=== PATIENT | female | born 1995 | race African-American/Black ===

== ENCOUNTER 2017-08-18 21:17 | Emergency (ER) | payer OTHER ==
[~2017-08-18] VITALS: Ht 167.6 cm; Wt 111.4 kg
[2017-08-18 21:27] VITALS: BP 135/76; TEMP 99
[2017-08-18] MEDS ORDERED: NORCO 325 MG-51 TAB PO (22:49)
[2017-08-18] MEDS ORDERED: FLEXERIL 1010 MG/TAB PO (22:49)
[2017-08-18] MEDS ORDERED: MOTRIN 800800 MG/TAB PO (22:49)
[2017-08-18 23:27] VITALS: PULSE 87
== END 2017-08-18 23:29 | disposition home or self-care (01) ==
LOC: COL.ER 21:17
DX: S13.9XXA Sprain of joints and ligaments of unspecified parts of neck, initial encounter (principal); E78.5 Hyperlipidemia, unspecified; V43.62XA Car passenger injured in collision with other type car in traffic accident, initial encounter

== ENCOUNTER 2020-11-02 00:15 | Emergency (ER) | payer BC ==
[~2020-11-02] VITALS: Ht 167.6 cm; Wt 118.2 kg
[~2020-11-02 00:15] MED LIST: FLEXERIL 1010 MG/TAB PO; MOTRIN 800800 MG/TAB PO; NORCO 325 MG-51 TAB PO
[2020-11-02 00:19] VITALS: BP 133/98; TEMP 97.2
[2020-11-02 00:54] LABS: STREP SCREEN NEGATIVE
[2020-11-02 01:05] VITALS: PULSE 83
== END 2020-11-02 01:05 | disposition home or self-care (01) ==
LOC: COL.ER 00:15
PROVIDERS: Emergency Medicine
DX: J02.9 Acute pharyngitis, unspecified (principal)
CPT/HCPCS: J8540

== ENCOUNTER 2020-11-02 01:20 | Emergency (ER) | payer BC ==
[~2020-11-02] VITALS: Ht 167.6 cm; Wt 118.2 kg
[2020-11-02 01:23] VITALS: TEMP 98.1
[2020-11-02 02:14] VITALS: BP 133/80; PULSE 80
== END 2020-11-02 02:14 | disposition home or self-care (01) ==
LOC: COL.ER 01:20
DX: J02.9 Acute pharyngitis, unspecified (principal)

== ENCOUNTER 2021-06-25 10:27 | Emergency (ER) | payer BC ==
[~2021-06-25] VITALS: Ht 167.6 cm; Wt 118.2 kg
[2021-06-25] MEDS ORDERED: SAXENDA6 MG/ML SQ (10:49)
[2021-06-25] MEDS ORDERED: CRESTOR5 MG PO (10:52)
[2021-06-25 11:06] LABS: COLLECTION METHOD CLEAN CATCH
[2021-06-25 11:15] LABS: MUCOUS Present (NOT PRESENT); PH 5 (5-8); URINE APPEARANCE Clear (CLEAR/HAZY); URINE BACTERIA None Seen /hpf (NONE SEEN); URINE BILIRUBIN Negative (NEGATIVE); URINE BLOOD Negative (NEGATIVE); URINE COLOR Yellow (YELLOW); URINE GLUCOSE Negative (NEGATIVE); URINE KETONE Negative (NEGATIVE); URINE LEUKOCYTE ESTERASE Negative (NEGATIVE); URINE NITRATE Negative (NEGATIVE); URINE PROTEIN(semi-quant) Negative (NEGATIVE); URINE RBC 0-2 /hpf (0-2); URINE UROBILINOGEN Negative (NEGATIVE)
[2021-06-25 11:33] LABS: BASO # 0.1 K/mm3 (0.0-0.2); EOS % 0.7 % (0.0-4.0); GRAN # 4.4 K/mm3 (1.4-6.5); GRAN % 72.4 % (42.2-75.2); HEMATOCRIT 43.3 % (37.0-47.0); HEMOGLOBIN 14.2 g/dl (12.5-16.0); LYMPH # 1.3 K/mm3 (1.2-3.4); LYMPH % 21.6 % (20.0-51.0); MEAN CELL VOLUME 82 fl (80.0-100.0); MEAN CORPUSCULAR HEMOGLOBIN 27 pg (27-31); MEAN CORPUSCULAR HGB CONC 33 g/dl (33.0-37.0); MONO # 0.2 K/mm3 (0.1-0.6); PLATELET COUNT 498 K/mm3 (130-400); RED BLOOD COUNT 5.28 M/mm3 (4.10-5.30); REDCELL DISTRIBUTION WIDTH-CV 14.2 % (11.5-14.5)
[2021-06-25 11:38] LABS: ALBUMIN 3.7 gm/dL (3.5-5.0); BILIRUBIN,TOTAL 0.4 mg/dL (0.2-1.2); C-REACTIVE PROTEIN 0.18 mg/dL (0.00-0.50); CREATININE, serum 0.72 mg/dL (0.57-1.11); POTASSIUM 4.5 mmol/L (3.5-4.5); TOTAL PROTEIN 7.6 gm/dL (6.2-8.1)
[2021-06-25] MEDS ORDERED: ZOFRAN ODT4 MG PO (12:22)
[2021-06-25 13:07] VITALS: BP 127/77; PULSE 84; TEMP 97.7
== END 2021-06-25 13:07 | disposition home or self-care (01) ==
LOC: COL.ER 10:27
PROVIDERS: Family Medicine
DX: R11.10 Vomiting, unspecified (principal); E86.0 Dehydration; Z32.02 Encounter for pregnancy test, result negative; Z90.49 Acquired absence of other specified parts of digestive tract
CPT/HCPCS: C9113; J2405; J7120